=== PATIENT | male | born 1975 | race Caucasian/White ===

== ENCOUNTER 2020-03-30 12:34 | Emergency (ER) | payer BC ==
[~2020-03-30] VITALS: Ht 188 cm; Wt 109.1 kg
[2020-03-30 12:39] VITALS: TEMP 98.4
[2020-03-30] MEDS ORDERED: PROZAC 20MG20 MG PO (12:42)
[2020-03-30] MEDS ORDERED: ZYPREXA ZYD10 MG/TAB PO (12:43)
[2020-03-30] MEDS ORDERED: NORCO 325 MG-51 TAB PO (14:10)
[2020-03-30 14:25] VITALS: BP 131/87; PULSE 74
== END 2020-03-30 14:29 | disposition home or self-care (01) ==
LOC: COL.ER 12:34
DX: S46.912A Strain of unspecified muscle, fascia and tendon at shoulder and upper arm level, left arm, initial encounter (principal); S70.02XA Contusion of left hip, initial encounter; F32.9 Major depressive disorder, single episode, unspecified; V29.40XA Motorcycle driver injured in collision with unspecified motor vehicles in traffic accident, initial encounter; Y93.55 Activity, bike riding; Y92.009 Unspecified place in unspecified non-institutional (private) residence as the place of occurrence of the external cause
CPT/HCPCS: J1885